=== PATIENT | female | born 1995 | race Caucasian/White ===

== ENCOUNTER 2025-04-01 11:00 | Outpatient (AMB) | payer OTHER, SELFPAY ==
--- NOTE | 2025-04-01 11:10 | A.OFFVIS_ITS ---
Vital Signs 3 04/01/25 11:11 Height 5 ft 4 in Weight 147 lb 11.355 oz BMI 25.4 BP 110/60 Blood Pressure Location Rt brachial Position Sitting Pulse 72 Pulse Source Pulse Oximeter Oxygen Delivery Method Room Air Intake Visit Reasons: Elevated LH hormone Intake Note: NEW Patient presents here today to establish treatment for Elevated LH Hormone: L Pack Operator Required: No Accompanied by: Self / Same As Patient Allergies ragweed pollen Allergy (Mild, Verified 04/01/25 11:13) Unknown Medication List - Last Reconciled 04/01/25 by Alan Larson MD multivitamin 1 tab PO DAILY HPI Comments Details: The patient is a 29-year-old female presenting with painful menstruation and associated symptoms. She reports that her menstrual periods have always been irregular, typically lasting two to three days with minimal bleeding and large clotting. Over the last six months to a year, she has experienced increased pain during tampon insertion and use, describing it as a stabbing pain in the vaginal area. The patient also reports a significant decrease in libido over the past few years. She has a history of hyperhidrosis, primarily affecting her hands and feet, which occurs regardless of temperature or emotional state. She has experienced episodes of rapid heartbeat, with no specific timing or trigger. The patient has not been diagnosed with hypertension, and her blood pressure readings have been normal. The patient has a heart-shaped uterus, as identified during a gynecological visit five years ago. She has not had an ultrasound of the uterus and has not been sexually active for the past three years. The patient is concerned about pheochromocytoma due to symptoms such as rapid heartbeat and hyperhidrosis, and she wishes to be tested for it. She reports not being sexually active due to decreased libido and concerns for vaginal pain when insertion of tampons during periods. ROS: - Cardiovascular: Reports episodes of rapid heartbeat. Denies chest pain or hypertension. - Endocrine: Reports hyperhidrosis affecting hands and feet. - Genitourinary: Reports painful menstruation and decreased libido. Denies sexual activity in the past three years. - Neurological: Reports headaches at the base of the skull, sometimes painful to touch. Physical exam: General: Alert, well-appearing, no acute distress. HEENT: PERRLA. Oropharynx clear. Neck: Supple, no lymphadenopathy or thyromegaly. Cardiac: Regular rate and rhythm, no murmurs. Lungs: Clear to auscultation bilaterally. Abdomen: Soft, non-tender, non-distended. Extremities: No edema, normal range of motion. Neuro: Alert and oriented, no focal deficits. Labs: [facility] Medical History (Updated 04/01/25 @ 11:46 by Alan Larson MD) History of irregular menstrual cycles History of back pain Hyperhidrosis Surgical History (Updated 04/01/25 @ 11:13 by MAURICIO Delaney) Hx of colonoscopy Hx of endoscopy Family History (Updated 03/31/25 @ 16:32 by MAURICIO Delaney) Father Family history of prostate cancer in father Mother No problems noted. Social History (Updated 04/01/25 @ 11:14 by MAURICIO Delaney) Alcohol intake: current Alcohol intake frequency: holidays/special occasions only Patient Tobacco Use Status: Never used Tobacco Physical Exam Vital Signs: Last Vital Signs Pulse 72 04/01/25 11:11 BP 110/60 04/01/25 11:11 Oxygen Delivery Method Room Air 04/01/25 11:11 BMI result Body Mass Index 25.4 Assessment & Plan Assessment & Plan (1) Dysmenorrhea: Code(s): N94.6 - Dysmenorrhea, unspecified Category: Medical Plan: Dysmenorrhea We discussed that her labs were ordered for the wrong gender as the reference values we obtain match those of a male not a female We also emphasized that reproductive hormones should be intepreted based on the phase of the menstrual cycle We discussed the female reproductive system physiology from endocrine standpoint Plan to repeat hormonal labs with correct reference ranges and perform a pelvic ultrasound to assess uterine structure. (2) Generalized hyperhidrosis: Code(s): R61 - Generalized hyperhidrosis Category: Medical Plan Hyperhidrosis Pheochromocytoma (suspected) - Consideration of pheochromocytoma testing due to symptoms. There is not personal or family history of neuro-endocrine tumors, nor there is suspicion of possible genetic syndrome associated to neuro-endocrine tumors -The possibility of pheochromocytoma was addressed, and I explained that while the pretest probability is low, testing will be done to alleviate her concerns. - Testing to be conducted to rule out due to patient's concern. Orders: Orders 2 Progesterone Today N94.6 - Dysmenorrhea, unspecified US pelvic complete Today N94.6 - Dysmenorrhea, unspecified Lutenizing Hormone Today N94.6 - Dysmenorrhea, unspecified Follicle Stimulating Hormone Today N94.6 - Dysmenorrhea, unspecified Testosterone, Free/Total Today N94.6 - Dysmenorrhea, unspecified Metanephrines, Random Urine Today R61 - Generalized hyperhidrosis Cortisol Random Today N94.6 - Dysmenorrhea, unspecified Coding Level of Care Code New Pt Level 5 (81670) Diagnoses Dysmenorrhea N94.6 Generalized hyperhidrosis R61 Time Spent (min) 60
[2025-04-01 11:11] VITALS: BP 110/60; PULSE 72; BMI 25.4
--- OUTSIDE RECORDS SUMMARY | 2025-04-01 13:39 | XMS_ITS | Clinical Summary ---
Author Organization [facility] Address [address] [place] [address] Care Team Providers Care Welding Operator Name Role Phone Ref, Has No Pcp Or Primary Care Provider Unavail able Allergies No known active allergies Social History Tobacco Use Types Packs/Day Years Used Date Smoking Tobacco: Never Assessed Comments Unknown Sex and Gender Information Value Date Recorded Sex Assigned at Not on file Legal Sex Female 12:00 PM EDT Gender Identity Not on file Sexual Orientation Not on file Last Filed Vital Signs Vital Sign Reading Time Taken Comments Blood Pressure 129/90 12/21/2020 12:14 PM EDT Pulse 83 12/21/2020 12:14 PM EDT Temperature 36.7 C (98.1 F) 12/21/2020 12:14 PM EDT Respiratory Rate 18 12/21/2020 12:14 PM EDT Oxygen Saturation 96% 12/21/2020 12:14 PM EDT Inhaled Oxygen Concentration - - Weight 67.1 kg (148 lb) 12/21/2020 12:17 PM EDT Height - - Body Mass Index - - Plan of Treatment Health Maintenance Due Date Last Done Comments HIV Screening 1997 DTaP,Tdap,and Td Vaccines (7 - Td or Tdap) 03/24/2019 03/24/2009, 09/27/2002, 04/28/1999, Additional history exists Alcohol/Substance Use Screening 07/10/2024 COVID-19 Vaccine (3 - 2024- season) 2025 12/03/2020, 11/11/2020 Influenza Vaccine (#1) 2025 03/24/2009 RSV Vaccine (60+ years old and patients) (1 - 1-dose 75+ series) 2072 Hepatitis B Vaccines Completed 04/17/1998, 1997, 1997 Varicella Vaccines Completed 11/26/2007, 05/23/2001 Pneumococcal Vaccine: Pediatric (0-5 Years) and At-Risk Patients (6-50 Years) Aged Out No longer eligible based on patient's age to complete this topic Insurance [address] [place] [address] [facility] Care Teams Welding Operator Relationship Specialty Start Date End Date Ref, Has No Pcp Or DO NOT EDIT THIS RECORD VIA PROVIDER ON THE FLY PCP - General Medical Claims Examiner 12/21/20
--- OUTSIDE RECORDS SUMMARY | 2025-04-01 13:39 | XMS_ITS | Clinical Summary ---
Author Organization [employer] Address [address] [facility] [address] [facility] [address] [place] [address] Care Team Providers Care Asphalt Surface Heater Operator Name Role Phone Unavailable Primary Care Provider Unavailabl e Encounters Date Type Department Care Team Description 02/12/2025 Telephone [facility] [address] [place] [address] [phone] Miguel Angel Holder MD [facility] - New Patient Assistance from Last 3 Months Social History Tobacco Use Types Packs/Day Years Used Date Smoking Tobacco: Never Assessed Comments Unknown Sex and Gender Information Value Date Recorded Sex Assigned at Female 02/12/2025 4:27 PM EDT Legal Sex Female 4:26 PM EDT Gender Identity Not on file Sexual Orientation Not on file Plan of Treatment Health Maintenance Due Date Last Done Comments Depression Screening 1997 HIV Screening 1997 SDOH Screening 1997 Disability Screening 1997 Alcohol/Substance Use Screening 2009 Tobacco Screening 2009 Family Planning (PISQ) 2012 HPV Vaccines (1 - 3-dose series) 2012 Hepatitis C Screening 2015 DTaP/Tdap/Td Vaccines (1 - Tdap) 2016 Hepatitis B Vaccines (1 of 3 - 19+ 3-dose series) 2016 Pap Smear 2018 COVID-19 Vaccine (1 - 2023-2 5 season) 2025 Influenza Vaccine (#1) 2025 Zoster Vaccines (1 of 2) 2047 RSV Patients and Pa tients Aged 60 years or older (1 - 1-dose 75+ series) 2072 HIB Vaccines Aged Out No longer eligi ble based on patient's age to complete this topic Hepatitis A Vaccines Aged Out No long er eligible based on patient's age to complete this topic IPV Vaccines Aged Out No longer eligi ble based on patient's age to complete this topic Meningococcal B Vaccine Aged Out No l onger eligible based on patient's age to complete this topic Meningococcal Vaccine Aged Out No eamon wilfredo eligible based on patient's age to complete this topic Pneumococcal Vaccine: Pediat rics (0 to 5 Years) and At-Risk Patients (6 to 49) Years Aged Out No longer eligible b ased on patient's age to complete this topic RSV under 20 months Aged Out No longe r eligible based on patient's age to complete this topic Rotavirus Vaccines Aged Out No longer eligible based on patient's age to complete this topic
--- OUTSIDE RECORDS SUMMARY | 2025-04-01 13:39 | XMS_ITS | Clinical Summary ---
Author Organization [facility] Address [address] [place] [phone] Phone Care Team Providers Care Bellows Assembler Name Role Phone Unavailable Primary Care Provider Unavailabl e Allergies No known active allergies Medications polyethylene glycol (MIRALAX) powderIndications :Constipation, unspecified constipation type Take 17 g by mouth daily. Stir and dissolve powder into 4 to 8 ounces of beverage and then drink. 527 g 5 8 Active Active Problems Problem Noted Date Diagnosed Date Constipation 07/17/2015 Long QT syndrome 04/28/2015 Syncope 04/28/2015 Immunizations Immunization Administration Dates Next Due DTaP 09/27/2002, 9,1997, 998,1997 Hep B, ped/adol 04/17/1998,1997,1997 Hib (PRP-T) 09/30/1998, 8,1997, 998 IPV 09/27/2002 Influenza 03/24/2009 MMR 09/27/2002,09/30/1998 Meningococcal Conj (Menactra) MCV4P 03/27/2015,0 03/24/2009 OPV 1997,1997,1997 Tdap 03/24/2009 Varicella 11/26/2007,05/23/2001 Family History Relation Name Status Comments Father Father: High ch olesterol, takes medication Other High cholestero l, takes medication Social History Tobacco Use Types Packs/Day Years Used Date Smoking Tobacco: Never Assessed Comments Unknown Sex and Gender Information Value Date Recorded Sex Assigned at Not on file Legal Sex Female 10:32 PM EST Gender Identity Not on file Sexual Orientation Not on file Last Filed Vital Signs Vital Sign Reading Time Taken Comments Blood Pressure 112/68 03/27/2015 12:00 AM EDT Pulse 68 03/27/2015 12:00 AM EDT Temperature 36.8 C (98.3 F) 10/09/2017 5:36 PM EDT Respiratory Rate - - Oxygen Saturation - - Inhaled Oxygen Concentration - - Weight 63.3 kg (139 lb 9.6 oz) 10/09/2017 5:36 P M EDT Height 161.3 cm (5' 3.5 ) 03/27/2015 12:00 AM ED T Body Mass Index - - Plan of Treatment Health Maintenance Due Date Last Done Comments DTaP,Tdap,and Td Vaccines (7 - Td or Tdap) 03/24/2019 03/24/2009, 09/27/2002, 04/28/1999, Additional history exists HPV Vaccines (1 - 3-dose SCDM series) 2024 Influenza Vaccines (#1) 2025 03/24/2009 COVID-19 Vaccine (2023- season) 2025 Hepatitis B Vaccines Completed 04/17/1998, 1997, 1997 HIB Vaccines Completed 09/30/1998, 12/08, 1997, Additional history exists IPV Vaccines Completed 09/27/2002, 12/08, 1997, Additional history exists MMR Vaccines Completed 09/27/2002, 09/30/1998 Varicella Vaccines Completed 11/26/2007, 05/23/2001 Meningococcal Vaccine Completed 03/27/2015, 009 Hepatitis A Vaccines Aged Out No long er eligible based on patient's age to complete this topic Men B Vaccine Aged Out No longer elig ible based on patient's age to complete this topic Pneumococcal Vaccine Aged Out No long er eligible based on patient's age to complete this topic Procedures * Due to [place] state law, this organization might not be sharing sensitive test results. Procedure Name Priority Date/Time Associated Diagnosis Comments CHLAMYDIA AND GONORRHEA, AMPLIFIED Routine 10/09/2017 5:57 PM EDT Dysuria from Last 3 Months or Most Recently Relevant to Health Maintenance Results * Due to [place] state law, this organization might not be sharing sensitive test results. * Chlamydia and Gonorrhea, Amplified (10/09/2017 5:57 PM EDT) Chlamydia trachomatis RNA, TMA Not Detected Not Detected 10/10/2017 10:18 AM EDT APARICIO KYLE Neisseria gonorrhoeae, PRASAD Not Detected Not Detected 10/10/2017 10:18 AM EDT APARICIO KYLE Specimen Type URINE 10/10/2017 10:18 AM EDT APARICIO KYLE Urine 10/09/2017 5:57 PM EDT 10/09/2017 8:54 PM EDT us Alyssa Rojo NP LAB MICROBIOLOGY - GENERAL ORDER MARLON Final Result [facility] from Last 3 Months or Most Recently Relevant to Health Maintenance
--- OUTSIDE RECORDS SUMMARY | 2025-04-01 13:39 | XMS_ITS | Encounter Summary ---
Author Organization [facility] Address [address] [place] [phone] Phone Care Team Providers Care Production Laborer Name Role Phone Hillary Waters NP Primary Care Provider [phone] Encounter Details Date Type Department Care Team (Late st Contact Info) Description 02/15/2017 Conversion Encounter [facility] Pediatric[facility] - [address], [address] [place] [address] Hillary Waters NP [address] [place] [address] Social History Tobacco Use Types Packs/Day Years Used Date Smoking Tobacco: Never Assessed Comments Unknown Sex and Gender Information Value Date Recorded Sex Assigned at Not on file Legal Sex Female 10:32 PM EST Gender Identity Not on file Sexual Orientation Not on file documented as of this encounter Plan of Treatment Not on file documented as of this encounter Visit Diagnoses Not on filedocumented in this encounter Care Teams Production Laborer Relationship Specialty Start Date End Date Hillary Waters NP [address] [place] [address] PCP - General 08/30/16 07/24/19 documented as of this encounter
--- OUTSIDE RECORDS SUMMARY | 2025-04-01 13:39 | XMS_ITS | Clinical Summary ---
Author Organization [facility] Address [address] [facility] [address] [place] [address] Phone Care Team Providers Care Office Asst Name Role Phone Anjelica Christensen NP Primary Care Provider [phone] Allergies No known active allergies Medications ciprofloxacin-d exAMETHasone (CIPRODEX) otic suspensionIndic ations:Acute contact otitis externa of left ear 4 drops by Each Ear route 2 (two) times a day. 7.5 mL Active Additional Information Patient not taking.Reported on 02/29/2024 Active Problems No known active problems Family History Medical History Relation Comments Heart disease Brother 1 Kidney nephrosis Father Cancer Paternal Grandfather Relation Status Comments Brother 1 Alive Brother 2 Alive Father Alive Maternal Grandfather Maternal Grandmother Mother Alive Paternal Grandfather Paternal Grandmother Social History Tobacco Use Types Packs/Day Years Used Date Smoking Tobacco: Never Smokeless Tobacco: Never Comments:E-cig Alcohol Use Standard Drinks/Week Comments No 0 (1 standard drink = 0.6 oz pur e alcohol) Education Answer Date Recorded Are you interested in more education? Not on rowan e 11/04/2022 Are you concerned about learning? Not on file 11/04/2022 No 11/04/2022 No 11/04/2022 Digital Access Answer Date Recorded No 12/02/2022 No 12/02/2022 Reliable internet access at home? Not on file 12/02/2022 Device with a working camera? Not on file Intimate Partner Violence Answer Date R ecorded Are you denied basic needs s uch as food, clothing, or medical care? No 02/29/2024 In the past 12 months have y ou been in a relationship with a person who hurts, threatens, or tries to control you? No 02/29/2024 Are you denied basic needs s uch as food, clothing, or medical care? No 02/29/2024 In the past 12 months have y ou been in a relationship with a person who hurts, threatens, or tries to control you? 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 Not on file Not on file Not on file Last Filed Vital Signs Vital Sign Reading Time Taken Comments Blood Pressure 143/84 03/24/2024 12:02 PM EDT Pulse 97 03/24/2024 12:02 PM EDT Temperature 36.8 C (98.2 F) 03/24/2024 12:02 PM EDT Respiratory Rate 18 03/24/2024 12:02 PM EDT Oxygen Saturation 99% 03/24/2024 12:02 PM EDT Inhaled Oxygen Concentration - - Weight 63.5 kg (140 lb) 02/29/2024 5:40 AM EDT Height 160 cm (5' 3 ) 02/29/2024 5:40 AM EDT Body Mass Index 24.8 02/29/2024 5:40 AM EDT Plan of Treatment Health Maintenance Due Date Last Done Comments DEPRESSION SCREENING 2009 HEPATITIS C SCREENING 2015 HIV ONE-TIME SCREENING (18-6 5 YEARS) 2015 Adult Td,Tdap Booster 03/24/2019 03/24/2009 PAP SMEAR 06/20/2021 06/20/2018, 06/13/2018 INFLUENZA VACCINE (#1) 2025 COVID-19 VACCINE (2024-2 6 season) 2025 12/03/2020, 11/11/2020 SMOKING STATUS SCREENING (On ce After 26 Yrs) Completed 06/13/2023 HEPATITIS A VACCINES Aged Out No long er eligible based on patient's age to complete this topic HIB VACCINES Aged Out No longer eligi ble based on patient's age to complete this topic MENINGOCOCCAL VACCINES (ACWY) Aged Out No longer eligible based on patient's age to complete this topic MENINGOCOCCAL VACCINES (B) Aged Out N o longer eligible based on patient's age to complete this topic PNEUMOCOCCAL VACCINES (0-49 years) Aged Out No longer eligible b ased on patient's age to complete this topic Medical Devices Not on file Procedures Procedure Name Priority Date/Time Associated Diagnosis Comments PAP TEST Routine 06/13/2018 12:00 AM EST from Last 3 Months or Most Recently Relevant to Health Maintenance Results * Pap Smear (06/13/2018 12:00 AM EST) 06/13/2018 06/21/2018 1:2 8 PM EST Narrative SEE NARRATIVE - 06/27/2018 4:24 [place] [address] Fashion Patternmaker: La Madsen MD MOTORCYCLE SALES ASSOCIATE Cytology Report FINAL DIAGNOSIS A. PAP SMEAR (SUREPATH) CE: SPECIMEN ADEQUACY: Satisfactory for evaluation; transformation zone present. INTERPRETATION: NEGATIVE FOR INTRAEPITHELIAL LESION OR MALIGNANCY. Electronically Signed Out By: MUKUND Combs(ASCP) The Pap test is a screening test primarily for squamous cancers and precursors and has associated false-negative and false-positive results. New technologies such as liquid-based preparations may decrease but will not eliminate all false-negative results. Regular sampling and follow-up of unexplained clinical signs and symptoms are recommended to minimize false negative results. CLINICAL HISTORY Date of Last Menstrual Period: 05/2018 Other Clinical Conditions: Screening Pap SPECIMEN SOURCE A: PAP SMEAR (SUREPATH) CE Patient Name: CRUZ HAWKINS : 1995 (Age: 22) Sex: F Institution: [facility] Location: [facility] Date of Collection: 06/13/2018 Date of Reported: 06/27/2018 16:24 Results to: Bonilla Jameson MD, BS Bonilla Jameson MD CYTOLOGY ORDERABLES Final Res ult SEE NARRATIVE from Last 3 Months or Most Recently Relevant to Health Maintenance Care Teams Office Asst Relationship Specialty Start Date End Date Anjelica Christensen NP [address] [place] [address] PCP - General Nurse Practitioner 02/24/25 Additional Source Comments The information contained in this document represents components of the legal health record. It is not the complete legal health record.[facility]
== END 2025-04-01 11:54 | disposition home or self-care (01) ==
LOC: HO.ENCR 11:01
PROVIDERS: PCP Nurse Practitioner Family; Visit Provider Student in an Organized Health Care Education/Training Program
DX: N94.6 Dysmenorrhea, unspecified (principal); R61 Generalized hyperhidrosis
CPT/HCPCS: 99205

== ENCOUNTER 2025-04-03 11:02 | Outpatient (REF) | payer OTHER, SELFPAY ==
[2025-04-04 05:19] LABS: Follicle Stimulating Hormone 6.2 mIU/mL
[2025-04-09 15:38] LABS: Testosterone, Free 3.3 pg/mL (0.1-6.4)
[2025-04-12 14:09] LABS: Metanephrine, Free Rand Ur 67 mcg/g cr (39-146); Normetanephrine, Free Rand Ur 140 mcg/g cr (91-365); Total Metanephrine, Free RU 207 mcg/g cr (156-442)
== END 2025-04-03 11:03 | disposition home or self-care (01) ==
LOC: HO.10HDL 11:02
PROVIDERS: Visit Provider Student in an Organized Health Care Education/Training Program
DX: N94.6 Dysmenorrhea, unspecified (principal); R61 Generalized hyperhidrosis
CPT/HCPCS: 36415; 82533; 83001; 83002; 83835; 84144; 84402; 84403

== ENCOUNTER 2025-05-13 10:54 | Outpatient (AMB) | payer OTHER, SELFPAY ==
--- NOTE | 2025-05-13 10:55 | MHC.OFFVIS ---
Vital Signs 05/13/25 10:56 Height 5 ft 4 in Weight 154 lb 5.177 oz BMI 26.5 BP 106/56 L Blood Pressure Location Lt brachial Position Sitting Pulse 94 Pulse Source Pulse Oximeter Pulse Oximetry (%) 97 Oxygen Delivery Method Room Air Intake Visit Reasons: Elevated LH hormone Intake Note: Patient presents here today for a follow-up on Elevated LH Hormone: Laboratory Completed: 04/03/2025 US Pelvic Completed: Per Order Patient Registration Manager: Please have the order updated to include transvaginal ultrasound views. Provider response: Declined?provider requested only a regular pelvic ultrasound to assess ovaries. A transvaginal ultrasound would require a prior gynecological exam, which provider does not perform. Status: The order has not been updated by the provider; no study has been completed at this time. Surgical Services Coordinator Required: No Accompanied by: Self / Same As Patient Allergies ragweed pollen Allergy (Mild, Verified 05/13/25 10:59) Unknown HPI Comments Details: The patient is a 29-year-old female presenting with painful menstruation and associated symptoms. She reports that her menstrual periods have always been irregular, typically lasting two to three days with minimal bleeding and large clotting. Over the last six months to a year, she has experienced increased pain during tampon insertion and use, describing it as a stabbing pain in the vaginal area. The patient also reports a significant decrease in libido over the past few years. She has a history of hyperhidrosis, primarily affecting her hands and feet, which occurs regardless of temperature or emotional state. She has experienced episodes of rapid heartbeat, with no specific timing or trigger. The patient has not been diagnosed with hypertension, and her blood pressure readings have been normal. The patient has a heart-shaped uterus, as identified during a gynecological visit five years ago. She has not had an ultrasound of the uterus and has not been sexually active for the past three years. The patient is concerned about pheochromocytoma due to symptoms such as rapid heartbeat and hyperhidrosis, and she wishes to be tested for it. She reports not being sexually active due to decreased libido and concerns for vaginal pain when insertion of tampons during periods. Interval history 05/13/2025 Continues to complain of dysmenorrhea and Pelvic/vaginal ?shooting? pains primarily during menses; occasional brief episodes between cycles. No nipple discharge or breast galactorrhea. Cyclical mastalgia/engorgement pre-menses only. Appetite variable; intermittent nausea with eating but no self-induced emesis. Craves sweets late at night; uses fruit/dark chocolate. Notes chronic ankle swelling; sometimes pitting per patient. Physical exam: General: Alert, well-appearing, no acute distress. HEENT: PERRLA. Oropharynx clear. Neck: Supple, no lymphadenopathy or thyromegaly. Cardiac: Regular rate and rhythm, no murmurs. Lungs: Clear to auscultation bilaterally. Abdomen: Soft, non-tender, non-distended. Extremities: No edema, normal range of motion. Neuro: Alert and oriented, no focal deficits. Labs: [facility] Medical History (Updated 04/01/25 @ 11:46 by Alan Larson MD) History of irregular menstrual cycles History of back pain Hyperhidrosis Surgical History Hx of colonoscopy Hx of endoscopy Family History Father Family history of prostate cancer in father Mother No problems noted. Social History Alcohol intake: current Alcohol intake frequency: holidays/special occasions only Patient Tobacco Use Status: Never used Tobacco Physical Exam Vital Signs: Last Vital Signs Pulse 94 05/13/25 10:56 BP 106/56 L 05/13/25 10:56 Pulse Ox 97 05/13/25 10:56 Oxygen Delivery Method Room Air 05/13/25 10:56 BMI result Body Mass Index 26.5 Assessment & Plan Assessment & Plan (1) Dysmenorrhea: Code(s): N94.6 - Dysmenorrhea, unspecified Category: Medical Plan: Dysmenorrhea Pelvic/vaginal pain, dysmenorrhea ? Etiology unclear; features could be gynecologic: endometriosis, pelvic floor pain, vulvodynia. No endocrine intermodal truck driver identified. Needs AIRCRAFT LAUNCH AND RECOVERY TECHNICIAN evaluation and imaging. Mild biochemical hyperandrogenism (intermittent) ? Clinical signs minimal (mild acne; no hirsutism). Prior LC-MS/MS testosterone normal; current mild elevation likely assay/method variance. Consider ?lean PCOS? vs normal physiologic variation; adrenal source less likely but will check DHEA-S. Plan Referral: In-system AIRCRAFT LAUNCH AND RECOVERY TECHNICIAN for evaluation of pelvic pain/dysmenorrhea and to guide tolerability of transvaginal exam. Imaging: Pelvic ultrasound (start transabdominal; proceed transvaginal if tolerated). Include ovaries (morphology, stroma, AFC if feasible), uterus/endometrium. Document pain during procedure and abort if intolerable. Will repeat labs in 3 months for follow up (2) Generalized hyperhidrosis: Code(s): R61 - Generalized hyperhidrosis Category: Medical Plan: Hyperhidrosis Pheochromocytoma (suspected) Unclear etiology, urine metanephrines negative. Plan 30 minutes spent reviewing previous records, labs, imaging, education and documenting in the chart Orders: Orders US OB pelvic and transvaginal 3 Months N94.6 - Dysmenorrhea, unspecified Estradiol Ultra Sensitive 3 Months N94.6 - Dysmenorrhea, unspecified DHEA Sulfate 3 Months N94.6 - Dysmenorrhea, unspecified Follicle Stimulating Hormone 3 Months N94.6 - Dysmenorrhea, unspecified Sex Hormone Binding Globulin 3 Months N94.6 - Dysmenorrhea, unspecified Prolactin 3 Months N94.6 - Dysmenorrhea, unspecified Testosterone, Free/Total 3 Months N94.6 - Dysmenorrhea, unspecified Lutenizing Hormone 3 Months N94.6 - Dysmenorrhea, unspecified Referrals AIRCRAFT LAUNCH AND RECOVERY TECHNICIAN Referral N94.6 - Dysmenorrhea, unspecified Coding Level of Care Code Est Pt Level 4 (23414) Diagnoses Dysmenorrhea N94.6 Generalized hyperhidrosis R61
[2025-05-13 10:56] VITALS: BP 106/56; PULSE 94; O2SAT 97; BMI 26.5
--- OUTSIDE RECORDS SUMMARY | 2025-05-13 13:10 | XMS_ITS | Clinical Summary ---
Author Organization [facility] Address [address] [facility] [address] [place] [id number] Phone Care Team Providers Care Embroidery Worker Name Role Phone Anjelica Christensen GORE STITCHER Primary Care Provider [phone] Allergies No known active allergies Medications ciprofloxacin-d exAMETHasone (CIPRODEX) otic suspensionIndic ations:Acute contact otitis externa of left ear 4 drops by Each Ear route 2 (two) times a day. 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 PAP SMEAR [...] : 1995 (Age: 22) Sex: F Institution: [facility] Location: [facility] Date of Collection: 06/13/2018 Date of Reported: 06/27/2018 16:24 Results to: Bonilla Jameson MD, BS us Bonilla Jameson MD CYTOLOGY ORDERABLES Final Res ult SEE NARRATIVE from Last 3 Months or Most Recently Relevant to Health Maintenance Care Teams Embroidery Worker Relationship Specialty Start Date End Date Anjelica Christensen NP [email or web address] PCP - General Nurse Practitioner 02/24/25 Additional Source Comments The information contained in this document represents components of the legal health record. It is not the complete legal health record.[facility]
--- OUTSIDE RECORDS SUMMARY | 2025-05-13 13:10 | XMS_ITS | Clinical Summary ---
Author Organization [facility] Address [address] [place] [address] Care Team Providers Care Special Assets Officer Name Role Phone Ref, Has No Pcp [...] Date Last Done Comments HIV Screening 1995 Pap Smear 1995 DTaP,Tdap,and Td Vaccines (7 - Td [...] to complete this topic Insurance [address] [place] [address] [facility] Care Teams Special Assets Officer Relationship Specialty Start Date End Date Ref, Has No Pcp Or DO NOT EDIT THIS RECORD VIA PROVIDER ON THE FLY PCP - General Nuclear Reactor Technician 12/21/20
--- OUTSIDE RECORDS SUMMARY | 2025-05-13 13:11 | XMS_ITS | Encounter Summary ---
Author Organization [facility] Address [address] [place] [address] Phone Care Team Providers Care Grain Broker Name Role Phone Hillary Waters NP Primary Care Provider [phone] Encounter Details Date Type Department Care Team (Late st Contact Info) Description 02/15/2017 Conversion Encounter [facility] - [address], [address] [place] [address] Hillary Waters NP [address] [place] [address] Social History Tobacco Use Types Packs/Day Years [...] on filedocumented in this encounter Care Teams Grain Broker Relationship Specialty Start Date End Date Hillary Waters NP [address] [place] [address] PCP - General 08/30/16 07/24/19 documented as of this encounter
--- OUTSIDE RECORDS SUMMARY | 2025-05-13 13:11 | XMS_ITS | Clinical Summary ---
Author Organization [facility] Address [address] [place] [phone] Phone Care Team Providers Care Furnace And Wash Equipment Operator Name Role Phone Unavailable Primary Care [...] Influenza Vaccines (#1) 2025 03/24/2009 COVID-19 Vaccine ( - 2024- season) 2025 Hepatitis B Vaccines Completed 04/17/1998, [...] complete this topic Procedures * Due to [place] state law, this organization might not be sharing sensitive test results. Procedure Name Priority Date/Time Associated Diagnosis Comments CHLAMYDIA AND GONORRHEA, AMPLIFIED Routine 10/09/2017 5:57 PM EDT Dysuria from Last 3 Months or Most Recently Relevant to Health Maintenance Results * Due to [place] state law, this organization might not be [...] MICROBIOLOGY - GENERAL ORDER MARLON Final Result Hipbone from Last 3 Months or Most Recently Relevant to Health Maintenance
--- OUTSIDE RECORDS SUMMARY | 2025-05-13 13:11 | XMS_ITS | Clinical Summary ---
Author Organization [employer] Address [address] [facility] [address] [place] [address] Care Team Providers Care Director Translation Name Role Phone Unavailable Primary Care Provider Unavailabl e Encounters Date Type Department Care Team Description 02/12/2025 Telephone [facility] [address] [place] [address] [phone] Miguel Angel Holder MD [facility] - New [...]
== END 2025-05-13 11:25 | disposition home or self-care (01) ==
LOC: HO.ENCR 10:54
PROVIDERS: PCP Nurse Practitioner Family; Visit Provider Student in an Organized Health Care Education/Training Program
DX: N94.6 Dysmenorrhea, unspecified (principal); R61 Generalized hyperhidrosis
CPT/HCPCS: 99214